=== PATIENT | male | born 1965 | race Hispanic/Latino ===

== ENCOUNTER 2017-07-30 20:32 | Emergency (ER) | payer MEDICARE ==
[2017-07-30] MEDS ORDERED: KETOROLAC TROMETHAMINE 30MG/ML ONE (21:25)
== END 2017-07-30 22:10 | disposition home or self-care (01) ==
LOC: EDH 20:32
DX: J20.9 Acute bronchitis, unspecified (principal); I25.10 Atherosclerotic heart disease of native coronary artery without angina pectoris; I10 Essential (primary) hypertension; E11.9 Type 2 diabetes mellitus without complications; Z95.1 Presence of aortocoronary bypass graft; Z87.891 Personal history of nicotine dependence
CPT/HCPCS: 71046; 87804 ×2; 96372; 99285; J1885

== ENCOUNTER → 2021-01-08 | Outpatient (CLI) | payer OTHER, MEDICARE ==
[~2021-01-08] MED LIST: REGADENOSON 0.4 MG/5 ML PF SYG IVP SCH
== END | disposition home or self-care (01) ==
LOC: RAH 08:59
PROVIDERS: ATTEND Internal Medicine Cardiovascular Disease
DX: I25.10 Atherosclerotic heart disease of native coronary artery without angina pectoris (principal); I25.810 Atherosclerosis of coronary artery bypass graft(s) without angina pectoris
CPT/HCPCS: 78452; 93017; 96374; A9500 ×2; J2785

== ENCOUNTER → 2021-01-28 | Outpatient (CLI) | payer OTHER, MEDICARE | END | disposition home or self-care (01) | LOC: SHCH 08:33 | PROVIDERS: ATTEND Internal Medicine Cardiovascular Disease | DX: I73.9 Peripheral vascular disease, unspecified (principal) | CPT/HCPCS: 93925 ==

== ENCOUNTER 2021-03-06 05:55 | Day surgery (SDC) | payer OTHER, MEDICARE ==
[2021-02-28 10:11] LABS: APPEARANCE,URINE Clear (CLEAR); BILIRUBIN,URINE Negative (NEGATIVE); COLOR,URINE Yellow (YELLOW); GLUCOSE, URINE (UA) Negative (NEGATIVE); KETONES,URINE Negative (NEGATIVE); LEUKOCYTE ESTERASE ,URINE Negative (NEGATIVE); NITRATE,URINE Negative (NEGATIVE); OCCULT BLOOD,URINE Negative (NEGATIVE); PROTEIN,URINE Negative (NEGATIVE)
[2021-02-28 10:30] LABS: BASOPHILS % (AUTO) 0.9 % (0.0-5.0); EOSINOPHILS % (AUTO) 3.8 % (0.0-8.0); HEMATOCRIT 40.3 % (42-54); MEAN CORPUSCULAR HEMOGLOBIN 28.1 pg (27.0-33.0); MEAN CORPUSCULAR HGB CONC 34.2 g/dL (32.0-36.0); MEAN CORPUSCULAR VOLUME 82.1 fL (79-99); MONOCYTES % (AUTO) 5.6 % (3.0-13.0); NEUTROPHILS % (AUTO) 66.4 % (40.0-77.0); PLATELET COUNT (AUTO) 115 K/uL (130-400); RED BLOOD CELL COUNT(AUTO) 4.91 MIL/uL (4.50-6.20); RED CELL DISTRIBUTION WIDTH 12.9 % (11.0-15.5); WHITE BLOOD COUNT (AUTO) 5.8 K/uL (4.8-10.8)
[2021-02-28 10:41] LABS: CREATININE 0.8 mg/dL (0.5-1.5); POTASSIUM 4.4 mmol/L (3.5-5.1)
[2021-02-28 10:43] LABS: INR 1.03 (0.85-1.15); PROTHROMBIN TIME 11.2 SEC (9.6-11.6)
[2021-02-28 10:44] LABS: PARTIAL THROMBOPLASTIN TIME 25.9 SEC (26.3-35.5)
[2021-03-05 10:27] VITALS: BP 156/77
[2021-03-06] VITALS (10 sets, daily range): BP systolic 130–166; BP diastolic 65–85
[~2021-03-06] VITALS: Ht 172.7 cm; Wt 95.1 kg
[~2021-03-06 05:55] MED LIST changes: +AEC81 PO; +INSU100I35 SQ; +LOSA100T58 PO; +PANT40TA54 PO; +RANO500T2 PO; -REGADENOSON 0.4 MG/5 ML PF SYG IVP SCH; +ROSU40TA21 PO
[2021-03-06] MEDS ORDERED: 0.9%NACL 1000ML 1,000 ML IV ONE (06:48)
[2021-03-06] MEDS ORDERED: IOHEXOL 350 MG/ML 100ML INFUS..BTL IV ONE (09:49)
[2021-03-06] MEDS ORDERED: NITROGLYCERIN 2 MG VIAL IV ONE (09:49)
[2021-03-06] MEDS ORDERED: MIDAZOLAM HCL 1 MG/ML 2ML VIAL ONE (09:50)
[2021-03-06] MEDS ORDERED: LIDOCAINE HCL 400MG/20ML VIAL ONE (09:50)
[2021-03-06] MEDS ORDERED: FENTANYL CITRATE PF 50 MCG/1 ML 2ML VIAL ONE (10:47)
[2021-03-06] MEDS ORDERED: LABETALOL 20MG VIAL IV ONE (11:18)
[2021-03-06] MEDS ORDERED: 0.9%NACL 1000ML 1,000 ML IV SCH (12:00)
[2021-04-03] MEDS ORDERED: CLOP75TA14 PO (18:46)
== END 2021-03-06 16:20 | disposition home or self-care (01) ==
LOC: DAH 05:55
PROVIDERS: ATTEND Internal Medicine Cardiovascular Disease
DX: I25.119 Atherosclerotic heart disease of native coronary artery with unspecified angina pectoris (principal); I70.212 Atherosclerosis of native arteries of extremities with intermittent claudication, left leg; I25.82 Chronic total occlusion of coronary artery; I70.1 Atherosclerosis of renal artery; I34.0 Nonrheumatic mitral (valve) insufficiency; I25.710 Atherosclerosis of autologous vein coronary artery bypass graft(s) with unstable angina pectoris; E11.51 Type 2 diabetes mellitus with diabetic peripheral angiopathy without gangrene; I10 Essential (primary) hypertension; E78.5 Hyperlipidemia, unspecified; E11.59 Type 2 diabetes mellitus with other circulatory complications; Z79.82 Long term (current) use of aspirin; Z79.01 Long term (current) use of anticoagulants; Z79.899 Other long term (current) drug therapy; Z98.890 Other specified postprocedural states; Z95.5 Presence of coronary angioplasty implant and graft; Z95.1 Presence of aortocoronary bypass graft
CPT/HCPCS: 36245; 36415; 71045; 75630; 80048; 81003; 82948 ×2; 85025; 85610; 85730; 93005; 93459; A4215; A4216; A4221; A4222; A4223 ×3; A4606; A4663; C1760; C1769; C1894 ×2; J1644; J2250; J3010; J3490 ×3; J7030; Q9965 ×2; Q9967; 99156; 99157

== ENCOUNTER 2021-04-04 07:09 | Day surgery (SDC) | payer OTHER, MEDICARE ==
[2021-04-02 15:16] LABS: BILIRUBIN,URINE Negative (NEGATIVE); COLOR,URINE Yellow (YELLOW); GLUCOSE, URINE (UA) >=1000 mg/dL (NEGATIVE); KETONES,URINE Negative (NEGATIVE); LEUKOCYTE ESTERASE ,URINE Negative (NEGATIVE); NITRATE,URINE Negative (NEGATIVE); OCCULT BLOOD,URINE Negative (NEGATIVE); PH,URINE 6.5 (5.0-8.0); PROTEIN,URINE Negative (NEGATIVE)
[2021-04-02 15:16] LABS: BASOPHILS % (AUTO) 0.6 % (0.0-5.0); EOSINOPHILS % (AUTO) 3.3 % (0.0-8.0); HEMATOCRIT 42.9 % (42-54); LYMPHOCYTES % (AUTO) 27.8 % (21.0-51.0); MEAN CORPUSCULAR HEMOGLOBIN 28.5 pg (27.0-33.0); MEAN CORPUSCULAR VOLUME 83.6 fL (79-99); MONOCYTES % (AUTO) 8.3 % (3.0-13.0); NEUTROPHILS % (AUTO) 59.8 % (40.0-77.0); PLATELET COUNT (AUTO) 135 K/uL (130-400); RED BLOOD CELL COUNT(AUTO) 5.13 MIL/uL (4.50-6.20); RED CELL DISTRIBUTION WIDTH 12.3 % (11.0-15.5); WHITE BLOOD COUNT (AUTO) 6.7 K/uL (4.8-10.8)
[2021-04-02 15:22] LABS: APPEARANCE,URINE CLEAR (CLEAR)
[2021-04-02 15:26] LABS: INR 1.05 (0.85-1.15); PROTHROMBIN TIME 11.4 SEC (9.6-11.6)
[2021-04-02 15:27] LABS: PARTIAL THROMBOPLASTIN TIME 25.8 SEC (26.3-35.5)
[2021-04-02 15:32] LABS: CREATININE 0.9 mg/dL (0.5-1.5); POTASSIUM 4.2 mmol/L (3.5-5.1)
[2021-04-02 15:38] LABS: BACTERIA,URINE Rare /HPF (None Seen); RBC,URINE 0-1 /HPF (0-1); SQUAMOUS EPITHELIAL CELL,UR Few /HPF (0-2); WBC,URINE 0-1 /HPF (0-1)
[2021-04-02 18:44] VITALS: BP 167/77
[~2021-04-04] VITALS: Ht 172.7 cm; Wt 96.3 kg
[2021-04-04] VITALS (7 sets, daily range): BP systolic 109–151; BP diastolic 65–80
[~2021-04-04 07:09] MED LIST changes: +0.9% NACL 500ML IV.SOLN 500 ML IV SCH; +CLOP75TA14 PO; -INSU100I35 SQ
[2021-04-04] MEDS ORDERED: 0.9%NACL 1000ML 1,000 ML IV ONE (07:35)
[2021-04-04] MEDS ORDERED: INSU300I SQ (08:10)
[2021-04-04] MEDS ORDERED: HEPARIN 10,000 UNIT/10ML (1,000 UNIT/ML) VIAL ONE (08:53)
[2021-04-04] MEDS ORDERED: MIDAZOLAM HCL 1 MG/ML 2ML VIAL ONE (08:54)
[2021-04-04] MEDS ORDERED: IOHEXOL 350 MG/ML 100ML INFUS..BTL IV ONE (08:54)
[2021-04-04] MEDS ORDERED: NITROGLYCERIN 2 MG VIAL IV ONE (08:54)
[2021-04-04] MEDS ORDERED: LIDOCAINE HCL 400MG/20ML VIAL ONE (08:54)
[2021-04-04] MEDS ORDERED: FENTANYL CITRATE PF 50 MCG/1 ML 2ML VIAL ONE ×2 (08:54→11:05)
[2021-04-04] MEDS ORDERED: CLOPIDOGREL 300MG TAB ONE (10:20)
[2021-04-04] MEDS ORDERED: ASPIRIN 325MG EC TAB PO ONE (10:20)
[2021-04-04] MEDS ORDERED: 0.9%NACL 1000ML 1,000 ML IV SCH (11:30)
== END 2021-04-04 15:30 | disposition home or self-care (01) ==
LOC: DAH 07:09
PROVIDERS: ATTEND Internal Medicine Cardiovascular Disease
DX: E11.51 Type 2 diabetes mellitus with diabetic peripheral angiopathy without gangrene (principal); I70.212 Atherosclerosis of native arteries of extremities with intermittent claudication, left leg; E11.59 Type 2 diabetes mellitus with other circulatory complications; I10 Essential (primary) hypertension; E78.5 Hyperlipidemia, unspecified; I25.10 Atherosclerotic heart disease of native coronary artery without angina pectoris; Z79.01 Long term (current) use of anticoagulants; Z79.899 Other long term (current) drug therapy; Z98.890 Other specified postprocedural states; Z79.4 Long term (current) use of insulin; Z79.82 Long term (current) use of aspirin
CPT/HCPCS: 36415; 71045; 75716; 80048; 81001; 82948 ×2; 85025; 85347; 85610; 85730; 93005; A4215; A4216; A4221; A4222; A4223 ×3; A4606; A4663; A6260; C1725 ×2; C1727; C1760 ×2; C1769 ×2; C1876; C1894 ×3; C9765; J1644 ×3; J2250; J3010 ×2; J3490 ×2; J7030; Q9967; 75710; 99156; 99157

== ENCOUNTER 2021-04-10 17:25 | Emergency (ER) | payer OTHER, MEDICARE ==
[~2021-04-10] VITALS: Ht 172.7 cm; Wt 94.8 kg
[~2021-04-10 17:25] MED LIST changes: -0.9% NACL 500ML IV.SOLN 500 ML IV SCH; +INSU300I SQ
[2021-04-10 17:29] VITALS: BP 162/81
[2021-04-10 18:06] LABS: BASOPHILS % (AUTO) 0.2 % (0.0-5.0); EOSINOPHILS % (AUTO) 1.9 % (0.0-8.0); HEMATOCRIT 39.5 % (42-54); LYMPHOCYTES % (AUTO) 8.1 % (21.0-51.0); MEAN CORPUSCULAR HEMOGLOBIN 27.9 pg (27.0-33.0); MEAN CORPUSCULAR HGB CONC 34.4 g/dL (32.0-36.0); MEAN CORPUSCULAR VOLUME 81.1 fL (79-99); MONOCYTES % (AUTO) 6.8 % (3.0-13.0); NEUTROPHILS % (AUTO) 82.5 % (40.0-77.0); PLATELET COUNT (AUTO) 133 K/uL (130-400); RED BLOOD CELL COUNT(AUTO) 4.87 MIL/uL (4.50-6.20); RED CELL DISTRIBUTION WIDTH 12.1 % (11.0-15.5); WHITE BLOOD COUNT (AUTO) 10.3 K/uL (4.8-10.8)
[2021-04-10 18:09] LABS: APPEARANCE,URINE Clear (CLEAR); BILIRUBIN,URINE Negative (NEGATIVE); COLOR,URINE Yellow (YELLOW); GLUCOSE, URINE (UA) Negative (NEGATIVE); KETONES,URINE Negative (NEGATIVE); LEUKOCYTE ESTERASE ,URINE Negative (NEGATIVE); NITRATE,URINE Negative (NEGATIVE); OCCULT BLOOD,URINE Negative (NEGATIVE); PROTEIN,URINE Negative (NEGATIVE)
[2021-04-10 18:23] LABS: POTASSIUM 4.5 mmol/L (3.5-5.1)
[2021-04-10] MEDS ORDERED: 0.9% NACL 500ML IV.SOLN 500 ML IV STA (18:31)
[2021-04-10 18:40] LABS: ALBUMIN 3.9 g/dL (3.5-5.0); BILIRUBIN,TOTAL 0.6 mg/dL (0.2-1.0); TOTAL PROTEIN, SERUM 7.5 g/dL (6.0-8.3)
[2021-04-10] MEDS ORDERED: IOHEXOL-350 75 ML VIAL IV ONE (19:04)
[2021-04-10] MEDS ORDERED: IOHEXOL-350 50ML VIAL IV ONE (19:04)
[2021-04-10] MEDS ORDERED: 0.9% NACL 500ML IV.SOLN 500 ML IV ONE (20:08)
== END 2021-04-10 21:16 | disposition home or self-care (01) ==
LOC: EDH 17:25
DX: K80.20 Calculus of gallbladder without cholecystitis without obstruction (principal); E11.9 Type 2 diabetes mellitus without complications; E78.00 Pure hypercholesterolemia, unspecified; I10 Essential (primary) hypertension; Z79.4 Long term (current) use of insulin; Z79.82 Long term (current) use of aspirin; Z79.899 Other long term (current) drug therapy; Z95.1 Presence of aortocoronary bypass graft
CPT/HCPCS: 36415; 75635; 80053; 81003; 82550; 83605; 83690; 83874; 84484; 85025; 93005; 99285; J7040; Q9967 ×2

== ENCOUNTER → 2023-10-28 | Outpatient (CLI) | payer OTHER, MEDICARE ==
[~2023-10-28] MED LIST changes: +CLOP-31 PO; -CLOP75TA14 PO; -LOSA100T58 PO; +LOSA100T59 PO; -ROSU40TA21 PO; +ROSU40TA70 PO
== END | disposition home or self-care (01) ==
LOC: SHCH 08:52
PROVIDERS: ATTEND Internal Medicine Cardiovascular Disease
DX: I35.8 Other nonrheumatic aortic valve disorders (principal); I25.5 Ischemic cardiomyopathy; E11.9 Type 2 diabetes mellitus without complications; E78.5 Hyperlipidemia, unspecified; I11.9 Hypertensive heart disease without heart failure
CPT/HCPCS: 93306